=== PATIENT | female | born 1955 | race Caucasian/White ===

== ENCOUNTER 2022-05-09 10:32 | Outpatient (CLI) | payer OTHER ==
[2022-05-09 14:30] LABS: BASOPHILS # (AUTO) 0.1 10^3/uL (0.0-0.1); BASOPHILS % (AUTO) 1.2 %; EOSINOPHILS # (AUTO) 0.5 10^3/uL (0.0-0.7); EOSINOPHILS % (AUTO) 6.6 %; HCT - HEMATOCRIT 38.5 % (37.0-47.0); HGB - HEMOGLOBIN 12.9 g/dL (12.0-16.0); LYMPHOCYTES # (AUTO) 3.4 10^3/uL (1.5-3.5); LYMPHOCYTES % (AUTO) 41.6 %; MEAN CORPUSCULAR HEMOGLOBIN 33.7 pg (27.0-31.0); MEAN CORPUSCULAR HGB CONC 33.5 g/dL (32.0-36.0); MEAN CORPUSCULAR VOLUME 100.5 fL (81.0-99.0); MEAN PLATELET VOLUME 10.8 fL (7.9-10.8); MONOCYTES # (AUTO) 0.7 10^3/uL (0.0-1.0); MONOCYTES % (AUTO) 8.7 %; NEUTROPHILS # (AUTO) 3.4 10^3/uL (1.5-6.6); NEUTROPHILS % (AUTO) 41.5 %; PLT - PLATELET COUNT 272 10^3/uL (130-450); RED BLOOD COUNT 3.83 10^6/uL (4.20-5.40); RED CELL DISTRIBUTION WIDTH 12.3 % (12.0-15.0); WHITE BLOOD COUNT 8.1 x10^3/uL (4.8-10.8)
[2022-05-09 15:00] LABS: THYROID STIMULATING HORMONE 1.98 uIU/mL (0.34-5.60)
[2022-05-09 15:03] LABS: ALBUMIN 4.5 g/dL (3.2-5.5); ALBUMIN/GLOBULIN RATIO 1.5 (1.0-2.2); ALKALINE PHOSPHATASE 61 IU/L (42-121); ALT ALANINE AMINOTRANSFERASE 28 IU/L (10-60); AST ASPARTATE AMINOTRANSFERASE 26 IU/L (10-42); BILIRUBIN,TOTAL 0.7 mg/dL (0.2-1.0); BUN - BLOOD UREA NITROGEN 22 mg/dL (6-20); CALCIUM 9.6 mg/dL (8.5-10.3); CARBON DIOXIDE - CO2 24 mmol/L (21-32); CHLORIDE 93 mmol/L (101-111); CHOL/HDL RATIO 5.2 (<4.4); CHOLESTEROL 314 mg/dL; CREATININE 1.3 mg/dL (0.4-1.0); GFR - MDRD 41 (>89); GLUCOSE 95 mg/dL (70-100); HDL CHOLESTEROL 60 mg/dL; LDL CHOLESTEROL,CALCULATED 207 mg/dL; LDL/HDL RATIO 3.5 (<4.4); POTASSIUM 4.4 mmol/L (3.5-5.0); SODIUM 128 mmol/L (135-145); TOTAL PROTEIN 7.6 g/dL (6.7-8.2); TRIGLYCERIDES 237 mg/dL; VLDL CHOLESTEROL 47 mg/dL
[2022-05-09 21:16] LABS: ESTIMATED AVERAGE GLUCOSE 117 mg/dL (70-100); HEMOGLOBIN A1c% 5.7 % (4.27-6.07)
== END 2022-05-09 10:33 | disposition home or self-care (01) ==
LOC: LAB.S 10:32
PROVIDERS: ATTEND Nurse Practitioner Primary Care
DX: Z00.01 Encounter for general adult medical examination with abnormal findings (principal); I10 Essential (primary) hypertension; E78.5 Hyperlipidemia, unspecified
CPT/HCPCS: 36415; 80053; 80061; 83036; 83721; 84443; 85025

== ENCOUNTER 2022-12-06 10:24 | Outpatient (CLI) | payer MEDICARE ==
[2022-12-06 16:14] LABS: CHOL/HDL RATIO 4.5 (<4.4); CHOLESTEROL 281 mg/dL; HDL CHOLESTEROL 62 mg/dL; LDL CHOLESTEROL,CALCULATED 172 mg/dL; LDL/HDL RATIO 2.8 (<4.4); TRIGLYCERIDES 235 mg/dL (48-352); VLDL CHOLESTEROL 47 mg/dL
[2022-12-07 05:14] LABS: HCV AB Non Reactive (Non Reactive)
== END 2022-12-06 10:25 | disposition home or self-care (01) ==
LOC: LAB.S 10:24
DX: I10 Essential (primary) hypertension (principal); Z11.59 Encounter for screening for other viral diseases
CPT/HCPCS: 36415; 80061; 83721; 86803

== ENCOUNTER 2023-05-29 08:33 | Outpatient (CLI) | payer MEDICARE ==
[2023-05-29 16:07] LABS: HCT - HEMATOCRIT 35.6 % (37.0-47.0); HGB - HEMOGLOBIN 11.6 g/dL (12.0-16.0); MEAN CORPUSCULAR HEMOGLOBIN 33.8 pg (27.0-31.0); MEAN CORPUSCULAR HGB CONC 32.6 g/dL (32.0-36.0); MEAN CORPUSCULAR VOLUME 103.8 fL (81.0-99.0); MEAN PLATELET VOLUME 10.2 fL (7.9-10.8); RED BLOOD COUNT 3.43 10^6/uL (4.20-5.40); RED CELL DISTRIBUTION WIDTH 12.7 % (12.0-15.0); WHITE BLOOD COUNT 6.3 x10^3/uL (4.8-10.8)
[2023-05-29 16:32] LABS: CHOL/HDL RATIO 3.1 (<4.4); CHOLESTEROL 188 mg/dL; HDL CHOLESTEROL 60 mg/dL; LDL CHOLESTEROL,CALCULATED 92 mg/dL; LDL/HDL RATIO 1.5 (<4.4); TRIGLYCERIDES 179 mg/dL (48-352); VLDL CHOLESTEROL 36 mg/dL
== END 2023-05-29 08:34 | disposition home or self-care (01) ==
LOC: LAB.S 08:33
PROVIDERS: ATTEND Family Medicine
DX: I10 Essential (primary) hypertension (principal); Z11.59 Encounter for screening for other viral diseases; R71.8 Other abnormality of red blood cells; E53.8 Deficiency of other specified B group vitamins
CPT/HCPCS: 36415; 80061; 82607; 82746; 83721; 85027; 86803

== ENCOUNTER 2023-10-08 09:09 | Outpatient (CLI) | payer MEDICARE ==
--- NOTE | 2023-10-08 15:31 | Ultrasound Report ---
PROCEDURE: Carotid Doppler Complete INDICATIONS: CERVICOGENIC HEADACHE TECHNIQUE: Color and pulse Doppler interrogation was performed of both carotid systems, with image documentation and velocity measurements. COMPARISON: None. FINDINGS: Right side: Brachial blood pressure: 137/70 mm Hg. Common carotid artery peak systolic velocity: 58 cm/sec. Internal carotid artery peak systolic velocity: 93 cm/sec. Internal carotid artery end diastolic velocity: 29 cm/sec. External carotid artery peak systolic velocity: 76 cm/sec. ICA/CCA peak systolic ratio: 1.6 . Jaramillo scale imaging description: Calcified plaques at the bifurcation Percent internal carotid artery stenosis: Less than 50%. Vertebral artery: Flow direction is antegrade. Left side: Brachial blood pressure: 152/74 mm Hg. Common carotid artery peak systolic velocity: 50 cm/sec. Internal carotid artery peak systolic velocity: 98 cm/sec. Internal carotid artery end diastolic velocity: 35 cm/sec. External carotid artery peak systolic velocity: 105 cm/sec. ICA/CCA peak systolic ratio: 1.8 . Jaramillo scale imaging description: Mass effect plaques in distal CCA Percent internal carotid artery stenosis: Less than 50%. Vertebral artery: Flow direction is antegrade. IMPRESSION: 1. In the right internal carotid artery, there is <50% based on peak systolic velocity criteria. 2. In the left internal carotid artery, there is <50 based on peak systolic velocity criteria. 3. Antegrade blood flow within the right vertebral artery. 4. Antegrade blood flow within the left vertebral artery. The estimate of stenosis included in the report of the imaging study was calculated using the [facility]-end orsed standards of carotid artery stenosis. Reviewed by: Magdalena Myers MD on 10/08/2023 2:29 PM AKDT Approved by: Magdalena Myers MD on 10/08/2023 2:29 PM AKDT Station ID: [id number]
== END 2023-10-08 09:10 | disposition home or self-care (01) ==
LOC: DI 09:09
PROVIDERS: ATTEND Internal Medicine
DX: R42 Dizziness and giddiness (principal); G44.86 Cervicogenic headache
CPT/HCPCS: 93880

== ENCOUNTER 2023-10-11 15:03 | Outpatient (CLI) | payer MEDICARE | END 2023-10-11 15:04 | disposition home or self-care (01) | LOC: DI 15:03 | PROVIDERS: ATTEND Internal Medicine | DX: R01.1 Cardiac murmur, unspecified (principal); R42 Dizziness and giddiness; R06.09 Other forms of dyspnea | CPT/HCPCS: 93307 ==

== ENCOUNTER 2023-12-27 12:00 | Outpatient (CLI) | payer MEDICARE ==
[2023-12-27 12:22] LABS: BASOPHILS # (AUTO) 0.1 10^3/uL (0.0-0.1); EOSINOPHILS # (AUTO) 0.6 10^3/uL (0.0-0.7); EOSINOPHILS % (AUTO) 6.7 %; HCT - HEMATOCRIT 38.4 % (37.0-47.0); HGB - HEMOGLOBIN 12.7 g/dL (12.0-16.0); LYMPHOCYTES # (AUTO) 2.4 10^3/uL (1.5-3.5); LYMPHOCYTES % (AUTO) 29.8 %; MEAN CORPUSCULAR HEMOGLOBIN 32.9 pg (27.0-31.0); MEAN CORPUSCULAR HGB CONC 33.1 g/dL (32.0-36.0); MEAN CORPUSCULAR VOLUME 99.5 fL (81.0-99.0); MEAN PLATELET VOLUME 9.9 fL (7.9-10.8); MONOCYTES # (AUTO) 0.7 10^3/uL (0.0-1.0); MONOCYTES % (AUTO) 8.2 %; NEUTROPHILS # (AUTO) 4.4 10^3/uL (1.5-6.6); NEUTROPHILS % (AUTO) 53.8 %; PLT - PLATELET COUNT 310 10^3/uL (130-450); RED BLOOD COUNT 3.86 10^6/uL (4.20-5.40); RED CELL DISTRIBUTION WIDTH 12.2 % (12.0-15.0); WHITE BLOOD COUNT 8.2 x10^3/uL (4.8-10.8)
[2023-12-27 12:45] LABS: % IRON SATURATION 32 % (20-50); ALBUMIN 4.6 g/dL (3.2-5.5); ALBUMIN/GLOBULIN RATIO 1.6 (1.0-2.2); ALKALINE PHOSPHATASE 51 IU/L (42-121); ALT ALANINE AMINOTRANSFERASE 28 IU/L (10-60); AST ASPARTATE AMINOTRANSFERASE 23 IU/L (10-42); BILIRUBIN,TOTAL 0.4 mg/dL (0.2-1.0); BUN - BLOOD UREA NITROGEN 19 mg/dL (6-20); CALCIUM 10.6 mg/dL (8.5-10.3); CARBON DIOXIDE - CO2 27 mmol/L (21-32); CHLORIDE 104 mmol/L (101-111); CHOL/HDL RATIO 3.3 (<4.4); CHOLESTEROL 209 mg/dL; CREATININE 0.9 mg/dL (0.6-1.3); CRP - C-REACTIVE PROTEIN < 0.5 mg/dL (<0.5); GFR - MDRD 62 (>89); GLUCOSE 108 mg/dL (74-104); HDL CHOLESTEROL 63 mg/dL; IRON 107 ug/dL (50-212); LDL CHOLESTEROL,CALCULATED 118 mg/dL; LDL/HDL RATIO 1.9 (<4.4); POTASSIUM 4.3 mmol/L (3.5-4.5); SODIUM 139 mmol/L (135-145); TOTAL IRON BINDING CAPACITY 336 ug/dL (250-450); TOTAL PROTEIN 7.5 g/dL (6.4-8.9); TRANSFERRIN 240 mg/dL (203-362); TRIGLYCERIDES 138 mg/dL; URIC ACID 5.2 mg/dL (2.3-6.6); VLDL CHOLESTEROL 28 mg/dL
[2023-12-27 12:54] LABS: THYROID STIMULATING HORMONE 1.65 uIU/mL (0.34-5.60)
[2023-12-27 13:02] LABS: FERRITIN 291.3 ng/mL (11.0-306.8)
[2023-12-27 14:00] LABS: RHEUMATOID FACTOR NEGATIVE (Negative)
== END 2023-12-27 12:01 | disposition home or self-care (01) ==
LOC: LAB 12:00
PROVIDERS: ATTEND Internal Medicine
DX: I10 Essential (primary) hypertension (principal); E78.5 Hyperlipidemia, unspecified; D64.9 Anemia, unspecified; R06.09 Other forms of dyspnea; F41.9 Anxiety disorder, unspecified; M12.9 Arthropathy, unspecified
CPT/HCPCS: 36415; 80053; 80061; 82607; 82728; 83540; 83721; 84439; 84443; 84466; 84550; 85025; 85651; 86140; 86200; 86430

== ENCOUNTER 2023-12-27 12:26 | Outpatient (CLI) | payer MEDICARE ==
--- NOTE | 2023-12-27 15:13 | XRAY Report ---
PROCEDURE: Cervical Spine w/Flex/Ext 6+V INDICATIONS: CERVICOGENIC HEADACHE TECHNIQUE: 7 views of the cervical spine were acquired. COMPARISON: None. FINDINGS: Bones: No fractures or dislocations to the C7 level. Straightening of the normal cervical lordosis. Mild retrolisthesis of C5 on C6. Multilevel degenerative changes of the cervical spine with facet an d uncovertebral arthropathy, disc height loss, endplate degenerative changes and spurring. This is mo st severe at C4-C5 and C5-C6. No suspicious bony lesions. There is limited range of motion between f lexion and extension, with preserved bony alignment. Oblique images demonstrate multilevel osseous ne ural foraminal stenosis. Soft tissues: Prevertebral soft tissues are normal in thickness. IMPRESSION: Multilevel degenerative changes of the cervical spine with limited range of motion. Reviewed by: Clif Ocasio MD on 12/27/2023 3:11 PM PDT Approved by: Clif Ocasio MD on 12/27/2023 3:11 PM PDT Station ID: [id number]
== END 2023-12-27 12:27 | disposition home or self-care (01) ==
LOC: DI 12:26
PROVIDERS: ATTEND Internal Medicine
DX: G44.86 Cervicogenic headache (principal); R42 Dizziness and giddiness; M47.812 Spondylosis without myelopathy or radiculopathy, cervical region; I10 Essential (primary) hypertension; E78.5 Hyperlipidemia, unspecified; D64.9 Anemia, unspecified; R06.09 Other forms of dyspnea; F41.9 Anxiety disorder, unspecified; M12.9 Arthropathy, unspecified
CPT/HCPCS: 36415; 80053; 80061; 82607; 82728; 83540; 83721; 84439; 84443; 84466; 84550; 85025; 85651; 86140; 86200; 86430

== ENCOUNTER 2024-01-25 09:25 | Outpatient (CLI) | payer MEDICARE ==
--- NOTE | 2024-01-25 11:30 | XRAY Report ---
PROCEDURE: Lumbar Spine 4V INDICATIONS: BILATERAL SACROILIC JOINT PAIN,BACK STIFFNESS TECHNIQUE: 4 views of the lumbar spine were acquired. COMPARISON: None. FINDINGS: Surgical change: Bilateral total hip arthroplasties are noted. Bones: 5 [id number] vertebrae are present. There is normal bony alignment. No vertebral body co mpression fractures. No suspicious bony lesions. Advanced multilevel degenerative disc space loss wi th posterior disc osteophyte complex is noted. Multilevel facet arthropathy. Suspect canal stenosis. Soft tissues: Overlying bowel gas pattern is normal. No suspicious soft tissue calcifications. IMPRESSION: Advanced lumbar degenerative change. Suspect canal stenosis. Reviewed by: Nestor Cristina MD on 01/25/2024 11:29 AM PDT Approved by: Nestor Cristina MD on 01/25/2024 11:29 AM PDT Station ID: [id number]
[2024-01-25 14:49] LABS: BASOPHILS # (AUTO) 0.1 10^3/uL (0.0-0.1); EOSINOPHILS # (AUTO) 0.5 10^3/uL (0.0-0.7); EOSINOPHILS % (AUTO) 7.3 %; HCT - HEMATOCRIT 38.5 % (37.0-47.0); HGB - HEMOGLOBIN 12.7 g/dL (12.0-16.0); LYMPHOCYTES # (AUTO) 2.4 10^3/uL (1.5-3.5); LYMPHOCYTES % (AUTO) 33.5 %; MEAN CORPUSCULAR HEMOGLOBIN 33.2 pg (27.0-31.0); MEAN CORPUSCULAR VOLUME 100.8 fL (81.0-99.0); MEAN PLATELET VOLUME 10.6 fL (7.9-10.8); MONOCYTES # (AUTO) 0.5 10^3/uL (0.0-1.0); MONOCYTES % (AUTO) 6.2 %; NEUTROPHILS # (AUTO) 3.8 10^3/uL (1.5-6.6); NEUTROPHILS % (AUTO) 51.7 %; PLT - PLATELET COUNT 305 10^3/uL (130-450); RED BLOOD COUNT 3.82 10^6/uL (4.20-5.40); RED CELL DISTRIBUTION WIDTH 13.1 % (12.0-15.0); WHITE BLOOD COUNT 7.3 x10^3/uL (4.8-10.8)
--- NOTE | 2024-01-25 15:49 | XRAY Report ---
PROCEDURE: Sacrum/Coccyx INDICATIONS: BILATERAL SACROILIC JOINT PAIN,BACK STIFFNESS TECHNIQUE: 3 views of the sacrum and coccyx acquired. COMPARISON: Lumbar spine January 25, 2024 FINDINGS: Bones: No fractures or dislocations. No suspicious bony lesions. Moderate to marked multilevel disc height loss with endplate sclerosis and spurring and severe facet joint arthropathy of the visualize d lower lumbar spine. [id number]-uh-[id number] joint space narrowing and juxta-articular osteophytosis of the bilateral SI joints. Partially visualized bilateral hip arthroplasty; hardware in expected position without evidence of infection or loosening. Soft tissues: Visualized bowel gas pattern is normal. No suspicious soft tissue densities. Calcifi cation of the abdominal aorta. IMPRESSION: 1. 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 2. Multilevel lower lumbar spine spondylosis. 3. Partially visualized hip arthroplasty hardware in expected position without evidence of infection or loosening. Reviewed by: RICHARD Clements on 01/25/2024 3:48 PM PDT Approved by: Arianne Bernal MD on 01/25/2024 3:48 PM PDT Station ID: [id number]
[2024-01-25 16:41] LABS: FERRITIN 286.5 ng/mL (11.0-306.8)
== END 2024-01-25 09:26 | disposition home or self-care (01) ==
LOC: DI.S 09:25
PROVIDERS: ATTEND Internal Medicine
DX: M47.816 Spondylosis without myelopathy or radiculopathy, lumbar region (principal); M47.898 Other spondylosis, sacral and sacrococcygeal region; Z96.643 Presence of artificial hip joint, bilateral; R78.89 Finding of other specified substances, not normally found in blood
CPT/HCPCS: 36415; 82728; 83540; 84466; 85025